=== PATIENT | female | born 1995 | race African-American/Black ===

== ENCOUNTER 2018-09-22 11:11 | Emergency (ER) | payer MEDICAID ==
[~2018-09-22] VITALS: Ht 167.6 cm; Wt 100.2 kg
[2018-09-22 11:32] VITALS: BP 119/69
== END 2018-09-22 12:43 | disposition home or self-care (01) ==
LOC: ED 12:18
DX: F20.9 Schizophrenia, unspecified (principal); F31.9 Bipolar disorder, unspecified; Z76.0 Encounter for issue of repeat prescription
CPT/HCPCS: 82962; 99282